=== PATIENT | male | born 1950 | race African-American/Black ===

== ENCOUNTER 2017-04-03 08:53 | Inpatient (IN) | payer MEDICARE, MEDICAID ==
[~2017-04-03] VITALS: Ht 162.6 cm; Wt 63.5 kg
--- NOTE | 2017-04-03 09:20 | NUR ---
BB PRIVATE EMS FROM [facility] FOR POOR APPETITE, FAILURE TO THRIVE. VSS. SEEN BY MD FOR EVAL. SAFETY AND COMFORT MEASURES PROVIDED. WILL MONITOR.
[2017-04-03] MEDS ORDERED: IV NS 0.9% 500 ML BAG IV ONE (09:30)
--- NOTE | 2017-04-03 09:30 | NUR ---
IV ACCESS STARTED. BLOOD DRAWN. MEDICATED ORDERED.
[2017-04-03 09:56] LABS: CALCIUM, SERUM 9.7 mg/dL (8.5-10.1); CREATININE 0.7 mg/dL (0.6-1.3); POTASSIUM 3.3 mmol/L (3.5-5.1)
[2017-04-03 10:00] LABS: INR 1.06 (0.87-1.13)
[2017-04-03 10:01] LABS: BASOPHILS % (AUTO) 0.4 % (0.0-2.0); EOSINOPHILS # (AUTO) 0.1 /CMM (0.0-0.7); EOSINOPHILS % (AUTO) 1.7 % (0.0-6.0); HEMATOCRIT 33 % (39-51); HEMOGLOBIN 11.1 g/dL (13.5-17.5); LYMPHOCYTES % (AUTO) 17.2 % (20.0-44.0); MEAN CORPUSCULAR HEMOGLOBIN 29 PG (26.0-33.0); MEAN CORPUSCULAR HGB CONC 34 g/dl (31.0-36.0); MEAN CORPUSCULAR VOLUME 85 fL (80-96); MONOCYTES # (AUTO) 0.4 /CMM (0.1-1.30); MONOCYTES % (AUTO) 6.9 % (2.0-12.0); NEUTROPHILS # (AUTO) 4.3 /CMM (1.8-8.9); NEUTROPHILS % (AUTO) 73.8 % (43.0-81.0); PLATELET COUNT (AUTO) 223 /CMM (150-450); RDW COEFFICIENT OF VARIATION 14.6 (11.5-15.0); RED BLOOD CELL COUNT(AUTO) 3.85 MIL/uL (4.5-6.0); WHITE BLOOD COUNT (AUTO) 5.8 K/uL (4.3-11.0)
[2017-04-03 10:04] LABS: ALBUMIN 2.7 g/dL (3.4-5.0); BILIRUBIN,DIRECT 0.1 mg/dL (0.0-0.2); BILIRUBIN,TOTAL 0.4 mg/dL (0.2-1.0); TOTAL PROTEIN, SERUM 7.7 g/dL (6.4-8.2)
[2017-04-03] MEDS ORDERED: ASCO500T9 PO (10:46)
[2017-04-03] MEDS ORDERED: DOCU100C36 PO (10:46)
[2017-04-03] MEDS ORDERED: MIRT15TA PO (10:46)
[2017-04-03] MEDS ORDERED: BACL10TA PO (10:46)
[2017-04-03] MEDS ORDERED: METO25TA6 PO (10:46)
[2017-04-03] MEDS ORDERED: CHOL200026 PO (10:46)
[2017-04-03] MEDS ORDERED: MULT-213 PO (10:46)
[2017-04-03] MEDS ORDERED: SIMV20TA6 PO (10:46)
[2017-04-03] MEDS ORDERED: CLON1PAT TD (10:46)
[2017-04-03] MEDS ORDERED: INSU100I14 SQ (10:46)
[2017-04-03] MEDS ORDERED: IV NS 0.9% 1,000 ML IV PRN (10:58)
[2017-04-03] MEDS ORDERED: MAG HYDROX/AL HYDROX/SIMETH 30 ML UDC PO PRN ×2 (11:00→11:30)
[2017-04-03] MEDS ORDERED: HYDROCODONE/APAP 5/325MG 1 EACH TABLET PO PRN ×2 (11:00→11:30)
[2017-04-03] MEDS ORDERED: ONDANSETRON HCL/PF 4 MG/2 ML VIAL IVP PRN ×2 (11:00→11:30)
[2017-04-03] MEDS ORDERED: ACETAMINOPHEN 325 MG TABLET PO PRN ×2 (11:00→11:30)
[2017-04-03] MEDS ORDERED: MAGNESIUM HYDROXIDE 30 ML UDC PO PRN ×2 (11:00→11:30)
[2017-04-03] MEDS ORDERED: ZOLPIDEM TARTRATE 5 MG TABLET PO PRN ×2 (11:00→22:00)
[2017-04-03] MEDS ORDERED: DEXTROSE 50%-WATER 50 ML DISP.SYRIN IV PRN ×2 (11:00→11:30)
[2017-04-03] MEDS ORDERED: INSULIN REGULAR, HUMAN 100 UNIT/ML 3 ML VIAL SQ PRN ×2 (11:00→11:30)
[2017-04-03] MEDS ORDERED: Z GUARD REMEDY 2 OZ OINT TP PRN ×2 (11:00→11:30)
[2017-04-03] MEDS ORDERED: CLONIDINE HCL 0.1MG/24H PTWK 1 EA PATCH TD SCH (11:00)
[2017-04-03] MEDS ORDERED: *INSULIN REGULAR(HUMULIN R)HUM 100 UNIT/ML VIAL SQ PRN ×2 (11:00→11:30)
--- NOTE | 2017-04-03 11:16 | NUR ---
REPORT GIVEN TO BRIAN GEORGES FOR MS [id number]
[2017-04-03] MEDS ORDERED: BLOOD SUGAR DIAGNOSTIC 1 EACH STRIP VI SCH (12:00)
--- NOTE | 2017-04-03 12:45 | NUR ---
MS/nurseryperson New admission from emergency room with failure to thrive. Patient is fully admitted, picture taken of wound on sacral area. All history obtained from medical record due to patient's mental status. Awaiting admitting orders.
[2017-04-03] MEDS: CHOLECALCIFEROL 1,000 UNIT TABLET (VIT D3) PO SCH (13:13)
[2017-04-03] MEDS: BLOOD SUGAR DIAGNOSTIC 1 EACH STRIP VI SCH ×3 (13:14→22:59)
[2017-04-03] MEDS: IV NS 0.9% 1,000 ML IV PRN (13:15)
--- NOTE | 2017-04-03 13:44 | NUR ---
MS/RN GI consult Per Dr Daniel GI has already been contacted, patient for possible PEG tube placement.
--- NOTE | 2017-04-03 14:00 | NUR ---
MS/RN S/B Dr Forde Seen by Dr Forde - patient to be NPO from midnight for PEG tube placement tomorrow.
--- NOTE | 2017-04-03 15:00 | NUR ---
MS/RN Consents Consents signed via telephone consent by brother Radha Rosales.
--- NOTE | 2017-04-03 15:01 | NUR ---
MS/RN Contact information Contact information for brother Radha Rosales -
[2017-04-03] MEDS: POTASSIUM CL. PREMIX PERIPHER. 50 ML IV SCH ×4 (15:08→18:29)
[2017-04-03 16:00] VITALS: BP 167/91
[2017-04-03] MEDS ORDERED: ASCORBIC ACID 500 MG TABLET PO SCH (17:00)
[2017-04-03] MEDS: ASCORBIC ACID 500 MG TABLET PO SCH (17:07)
--- NOTE | 2017-04-03 19:38 | NUR ---
MS/RN End note Patient has been turned and repositioned every 2-3 hours throughout the shift to prevent skin breakdown. Needs to be transferred to isoflex bed. Last bag of potassium in progress at this time, no signs of infiltration seen around infusion sight. All needs attended, will endorse to shift mgr. Patient needs to be NPO from midnight for PEG placement tomorrow.
--- NOTE | 2017-04-03 19:50 | NUR ---
RN OPENING NOTES RECEIVED REPORT FROM DAYSHIFT RNBRIAN. FOUND Pt AWAKE, RESTING IN BED. RESPIRATIONS EVEN AND UNLABORED. NO S/S OF ACUTE DISTRESS OR SOB NOTED. Pt IS A/OX2, AWAKE, VERBAL AT TIMES, BUT IS VERY PASSIVE. IV ACCESS ON LAC #20G, IVF NS RUNNING AT BEDSIDE. SAFETY MEASURES IN PLACE. BED LOW, LOCKED, HOB ELEVATED, SIDE RAILS UP, CALL LIGHT AND BEDSIDE TABLE WITHIN REACH. WILL CONTINUE TO MONITOR Pt THROUGHOUT THE NIGHT FOR SAFETY.
[2017-04-03 20:00] VITALS: BP 173/99
[2017-04-03] MEDS ORDERED: DOCUSATE SODIUM 100 MG CAPSULE PO SCH (22:00)
[2017-04-03] MEDS ORDERED: SIMVASTATIN 20 MG TABLET PO SCH (22:00)
--- NOTE | 2017-04-03 22:59 | NUR ---
HS BG 118. NO INSULIN COVERAGE NEEDED. Pt WILL ALSO BE NPO STARTING AT [place] FOR PEG TUBE INSERTION IN THE AM.
[2017-04-03] MEDS: DOCUSATE SODIUM 100 MG CAPSULE PO SCH (23:00)
[2017-04-03] MEDS: SIMVASTATIN 20 MG TABLET PO SCH (23:00)
--- NOTE | 2017-04-03 23:08 | NUR ---
RN NOTES Pt REFUSED TO TAKE THE COLACE AND ZOCOR MED AFTER THE MEDS WERE SCANNED AND SAVED.
[2017-04-04] MEDS ORDERED: ENALAPRILAT INJ (1.25 MG/ML) 1.25 MG/ML VIAL IV ONE (02:00)
[2017-04-04] MEDS ORDERED: CLONIDINE HCL 0.1MG/24H PTWK 1 EA PATCH TD ONE (02:00)
--- NOTE | 2017-04-04 02:00 | NUR ---
RN NOTES SPOKE WITH DR LUCI MCKEON. INFORMED HIM ABOUT Pt's ELEVATED BP OF 186/107. CURRENTLY NPO FOR PEG INSERTION IN THE AM TODAY.
--- NOTE | 2017-04-04 02:33 | NUR ---
RN NOTES UNABLE TO ADMINISTER VASOTEC 1.25MG IV ON MS-2, Pt NEEDS TO BE ON TELE TO ADMINISTER. ONLY ADMINISTERED AT THIS TIME THE CLONIDINE 0.1MG TD PATCH ON RT SHOULDER.
--- NOTE | 2017-04-04 06:35 | NUR ---
AC BG 111. NO INSULIN COVERAGE NEEDED AT THIS TIME. Pt IS NPO DUE TO SURGERY.
[2017-04-04] MEDS: BLOOD SUGAR DIAGNOSTIC 1 EACH STRIP VI SCH ×4 (06:40→21:50)
--- NOTE | 2017-04-04 06:50 | NUR ---
RN CLOSING NOTES NO SIGNIFICANT CHANGES IN Pt's CONDITION. Pt REMAINS STABLE AT THIS TIME. NO S/S OF ACUTE DISTRESS OR SOB NOTED DURING THE NIGHT. ALL NEEDS MET AND ATTENDED TO. SAFETY MEASURES IN PLACE. PEG INSERTION IN THE AM TODAY. HAS BEEN NPO SINCE [place]. WILL ENDORSE TO DAYSHIFT RN FOR Pt's GEORGE.
[2017-04-04 08:00] VITALS: BP 171/105
[2017-04-04] MEDS: MULTIVITAMINS,THERAGRAN 1 UDTAB TABLET PO SCH (08:47)
[2017-04-04] MEDS: ASCORBIC ACID 500 MG TABLET PO SCH ×2 (08:47→17:22)
[2017-04-04] MEDS: BACLOFEN (10 MG) 10 MG TABLET PO SCH (08:47)
[2017-04-04] MEDS: CHOLECALCIFEROL 1,000 UNIT TABLET (VIT D3) PO SCH (08:48)
[2017-04-04] MEDS ORDERED: PANTOPRAZOLE 40 MG VIAL IV SCH (09:00)
[2017-04-04] MEDS ORDERED: BACLOFEN (10 MG) 10 MG TABLET PO SCH (09:00)
[2017-04-04] MEDS ORDERED: CLONIDINE HCL 0.1MG/24H PTWK 1 EA PATCH TD SCH ×2 (09:00→09:13)
[2017-04-04] MEDS: PANTOPRAZOLE 40 MG VIAL IV SCH (09:54)
[2017-04-04] MEDS: CLONIDINE HCL 0.1 MG TABLET PO PRN ×2 (09:55→17:22)
[2017-04-04] MEDS ORDERED: MORPHINE SULFATE INJ 4 MG/ML DISP.SYRIN IV PRN (10:00)
--- NOTE | 2017-04-04 10:10 | NUR ---
RN NOTES PATIENT'S BP ELEVATED, INFORMED DR. ENGLAND. RECEIVED ORDER FOR CLONIDINE 0.1MG PO PRN. ORDER NOTED AND CARRIED OUT. MEDICATION ADMINISTERED. INFORMED DR. ENGLAND RE: CLONIDINE PATCH, PER MD, PATIENT CAN KEEP PATCH, DON'T NEED TO REMOVE TODAY, NEXT SCHEDULED RE-APPLICATION IS NEXT SUNDAY. PATIENT ALERT AND ORIENTED, NO DISTRESS NOTED, FLAT AFFECT, ONLY SAY A FEW WORDS. NEEDS ATTENDED, CALL LIGHT WITHIN REACH, WILL CONTINUE TO MONITOR.
--- NOTE | 2017-04-04 11:00 | NUR ---
RN NOTES PATIENT BROUGHT TO OR FOR PEG PLACEMENT. RECENT VS BP 169/107 HR 110 SPO2 95% IN ROOM AIR. NO DISTRESS NOTED.
[2017-04-04 13:00] VITALS: BP 172/104
--- NOTE | 2017-04-04 13:29 | NUR ---
RN NOTES PATIENT CAME BACK FROM OR FOR S/P PEG PLACEMENT, GT PATENT, PLACEMENT VERIFIED. BP ELEVATED, 176/85 DR ENGLAND MADE AWARE AND RECEIVED ORDER FOR AMLODIPINE 5MG NOW THEN QD, ORDER NOTED AND CARRIED OUT. PATIENT ALERT AND ORIENTED X1-2, NO DISTRESS NOTED, STILL WITH FLAT AFFECT, NEEDS ATTENDED, CALL LIGHT WITHIN REACH, WILL CONTINUE TO MONITOR.
[2017-04-04] MEDS: AMLODIPINE BESYLATE 5 MG TABLET PO SCH (14:10)
[2017-04-04 16:00] VITALS: BP 174/104
--- NOTE | 2017-04-04 19:00 | NUR ---
RN NOTES PATIENT ALERT AND ORIENTED X1, VERBALLY RESPONSIVE BUT LIMITED, PATIENT STILL NOTED WITH FLAT AFFECT, BREATHING EVEN AND UNLABORED, ON O2 AT 2LPM VIA NC, NO SOB NOTED. DENIES PAIN AT THIS TIME, IVF INFUSING AND TOLERATING WELL, GT PATENT, NO BLEEDING FROM GT SITE NOTED. RECEIVED ORDER FROM DR. ENGLAND FOR A GT FEEDING AND DIETARY CONSULT. ORDER NOTED AND CARRIED OUT. TURNED AND REPOSITIONED Q2HRS, SKIN CARE RENDERED, WOUND TREATMENT DONE. ALL NEEDS ATTENDED AND MET, WILL ENDORSE TO CONCRETE PAVEMENT INSTALLER FOR GEORGE.
[2017-04-04 20:00] VITALS: BP 142/93
[2017-04-04] MEDS: DOCUSATE SODIUM 100 MG CAPSULE PO SCH (21:50)
[2017-04-04] MEDS: SIMVASTATIN 20 MG TABLET PO SCH (21:50)
[2017-04-04] MEDS ORDERED: GLYTROL 1,000 ML BAG GT PRN (22:00)
[2017-04-05] MEDS: IV NS 0.9% 1,000 ML IV PRN (05:53)
[2017-04-05] MEDS: BLOOD SUGAR DIAGNOSTIC 1 EACH STRIP VI SCH ×2 (05:54→12:06)
--- NOTE | 2017-04-05 06:47 | NUR ---
MS RN NOTES AWAKE & ALERT. NON VERBAL. NOT IN ANY DISTRESS. NO SOB NOTED. DENIES ANY PAIN OR DISCOMFORT AT THIS TIME. WITH IVF & GTF INFUSING WELL. AM CARE DONE. MONITORED ACCORDINGLY. CALL LIGHT WITHIN REACH. BED IN LOWEST POSITION. SR UP X 3 WITH BED ALARM ON FOR SAFETY. WILL ENDORSE TO NEXT SHIFT.
[2017-04-05] MEDS ORDERED: GLYTROL 1,000 ML BAG GT PRN (06:55)
--- NOTE | 2017-04-05 07:40 | NUR ---
MS/RN OPENING NOTE PATIENT IN BED IN STABLE CONDITION. A/O X 2. NO SIGNS OF ACUTE DISTRESS. NO COMPLAIN OF PAIN OR DISCOMFORT. ON GTUBE FEEDING TOLERATING WELL. HOB ELEVATED FOR ASPIRATION PRECAUTION. ALL NEEDS ATTENDED TO. CALL LIGHT WITHIN REACH. WILL CONTINUE TO MONITOR TO ENSURE SAFETY.
[2017-04-05 08:00] VITALS: BP 148/78
[2017-04-05] MEDS: PANTOPRAZOLE 40 MG VIAL IV SCH (09:31)
[2017-04-05] MEDS: ASCORBIC ACID 500 MG TABLET PO SCH (09:31)
[2017-04-05 09:32] VITALS: BP 148/78
[2017-04-05] MEDS: AMLODIPINE BESYLATE 5 MG TABLET PO SCH (09:32)
[2017-04-05] MEDS: CHOLECALCIFEROL 1,000 UNIT TABLET (VIT D3) PO SCH (09:32)
[2017-04-05] MEDS: MULTIVITAMINS,THERAGRAN 1 UDTAB TABLET PO SCH (09:32)
[2017-04-05] MEDS: BACLOFEN (10 MG) 10 MG TABLET PO SCH (09:32)
--- NOTE | 2017-04-05 15:26 | NUR ---
MS/CUPOLA LINER PATIENT DISCHARGE TO SNF IN STABLE CONDITION. A/O X 2. NO SIGNS OF ACUTE DISTRESS. NO COMPLAIN OF PAIN OR DISCOMFORT. DISCHARGE INSTRUCTION AND TEACHINGS PROVIDED UNABLE TO COMPREHEND. REPORT GIVEN TO BRYCE GEORGES FROM [facility]. NAME BAND AND IV LINE REMOVED. ALL NEEDS ATTENDED TO. LEFT VIA GURNEY IN STABLE CONDITION, ACCOMPANIED BY 2 CHIEF ENGINEER [employer].
[2017-04-11] MEDS ORDERED: CLONIDINE HCL 0.1MG/24H PTWK 1 EA PATCH TD SCH (09:00)
== END 2017-04-05 15:00 | DRG 640 ==
LOC: ER 09:02 → MEDSG2 11:36
PROVIDERS: ADMIT Internal Medicine; ATTEND Internal Medicine
PROC: 0DH63UZ Insertion of Feeding Device into Stomach, Percutaneous Approach (ICD-10-PCS; principal; 2017-04-04 11:35)
DX: R62.7 Adult failure to thrive (principal); E43 Unspecified severe protein-calorie malnutrition; G93.41 Metabolic encephalopathy; L89.153 Pressure ulcer of sacral region, stage 3; I11.0 Hypertensive heart disease with heart failure; I50.9 Heart failure, unspecified; E86.0 Dehydration; F03.90 Unspecified dementia, unspecified severity, without behavioral disturbance, psychotic disturbance, mood disturbance, and anxiety; Z86.73 Personal history of transient ischemic attack (TIA), and cerebral infarction without residual deficits; Z91.011 Allergy to milk products; E78.5 Hyperlipidemia, unspecified; Z79.899 Other long term (current) drug therapy; F32.9 Major depressive disorder, single episode, unspecified; I70.0 Atherosclerosis of aorta
CPT/HCPCS: 36415; 43246; 71045-TC; 80048-TC; 80076-TC; 82962-TC; 85025-TC; 85730-TC; 86850-TC; 87081-TC; A4606; C9113; J0690; J1815; J2704; J3480; J3490; J7030; J7040; Z7610